=== PATIENT | female | born 1985 | race Caucasian/White ===

== ENCOUNTER 2016-04-29 17:00 | Inpatient (IN) | payer OTHER ==
[~2016-04-29] VITALS: Ht 154.9 cm; Wt 115.2 kg
[2016-04-29] MEDS ORDERED: OXYTOCIN 20 UNITS/LR PREMIX 1,000 ML IV SCH (17:48)
[2016-04-29] MEDS ORDERED: METHYLERGONOVINE 0.2 MG/ML AMP IM SCH (17:50)
[2016-04-29] MEDS ORDERED: CARBOPROST 250 MCG/ML AMP IM PRN (17:50)
[2016-04-29] MEDS ORDERED: NALBUPHINE 10 MG/ML AMP IVP PRN (17:50)
[2016-04-29] MEDS ORDERED: IBUPROFEN 800 MG TAB PO PRN (17:50)
[2016-04-29] MEDS ORDERED: PROMETHAZINE 25 MG/ML VIAL IVP PRN (17:50)
[2016-04-29] MEDS: LACTATED RINGERS 1,000 ML IV SCH (19:19)
[2016-04-29] MEDS ORDERED: NATURAL IRON65 MG PO (19:46)
[2016-04-29] MEDS ORDERED: PRENATAL LOW IR1 TA1 PO (19:46)
[2016-04-29] MEDS ORDERED: NOVOLIN R 100 UNIT IM (19:46)
[2016-04-29] MEDS ORDERED: NOVOLIN N100 UNITS/ SUBQ (19:46)
[2016-04-29 19:50] VITALS: BP 120/75
[2016-04-29] MEDS ORDERED: OXYTOCIN 10 UNITS/ML VIAL IM ONE (20:00)
[2016-04-29] MEDS ORDERED: INFLUENZA VIRUS VACCINE QUAD 0.5 ML SYR IMVAC SCH (20:05)
[2016-04-29] MEDS ORDERED: MISOPROSTOL 25 MCG TAB ONE (22:42)
[2016-04-29] MEDS: MISOPROSTOL 25 MCG TAB VG PRN (22:57)
[2016-04-30] MEDS: LACTATED RINGERS 1,000 ML IV SCH ×4 (01:31→21:31)
[2016-04-30] MEDS ORDERED: ROPIVACAINE 0.2%/NS PREMIX 250 ML EPI ONE (01:45)
[2016-04-30] MEDS ORDERED: MISOPROSTOL 25 MCG TAB ONE (02:55)
[2016-04-30] MEDS: MISOPROSTOL 25 MCG TAB VG PRN (02:59)
[2016-04-30] MEDS ORDERED: OXYTOCIN 20 UNITS/LR PREMIX 1,000 ML IV ONE ×3 (07:08→22:42)
--- NOTE | 2016-04-30 08:32 | NUR ---
PATIENT HAS BEEN SCREENED AND CATEGORIZED MODERATE NUTRITION RISK. PATIENT WILL BE SEEN WITHIN 3-5 DAYS OF ADMISSION. 05/02/16-05/04/[address]
[2016-04-30] MEDS ORDERED: CITRIC ACID/SODIUM CITRATE 30 ML UDC PO SCH (20:00)
[2016-04-30] MEDS ORDERED: ceFAZolin 1,000 MG VIAL ONE (20:12)
[2016-04-30] MEDS ORDERED: ONDANSETRON 4 MG/2 ML VIAL IVP ONE (20:30)
[2016-04-30] MEDS ORDERED: ePHEDrine 50 MG/ML VIAL IV ONE (20:30)
[2016-04-30] MEDS ORDERED: fentaNYL 0.05 MG/ML VIAL ONE (20:44)
[2016-04-30] MEDS ORDERED: KETAMINE 500 MG/5 ML VIAL ONE (20:44)
[2016-04-30] MEDS ORDERED: MORPHINE PRES FREE 10 MG/10 ML AMP IV ONE (20:46)
[2016-04-30] MEDS ORDERED: MIDAZOLAM 2 MG/2 ML VIAL ONE (20:46)
[2016-04-30] MEDS ORDERED: METHYLERGONOVINE 0.2 MG/ML AMP ONE (20:49)
[2016-04-30] MEDS ORDERED: OXYTOCIN 10 UNITS/ML VIAL ONE (20:49)
[2016-04-30] MEDS ORDERED: SODIUM BICARBONATE 8.4% PFS 50 MEQ/50 ML SYR IVP ONE (20:54)
[2016-04-30] MEDS ORDERED: LIDOCAINE/EPI MPF 2%1:200000 10 ML VIAL INJ ONE (20:54)
[2016-04-30] MEDS ORDERED: CITRIC ACID/SODIUM CITRATE 30 ML UDC ONE (20:56)
[2016-04-30] MEDS ORDERED: METHYLERGONOVINE 0.2 MG/ML AMP IM PRN (21:10)
[2016-04-30] MEDS ORDERED: IBUPROFEN 800 MG TAB PO PRN (21:10)
[2016-04-30] MEDS ORDERED: oxyCODONE/APAP 5/325 MG 1 TAB TAB PO PRN (21:10)
[2016-04-30] MEDS ORDERED: MEASLES, MUMPS, AND RUBELLA 1 VIAL SQVAC PRN (21:10)
[2016-04-30] MEDS ORDERED: SIMETHICONE 80 MG TAB.CHEW PO PRN (21:10)
[2016-04-30] MEDS ORDERED: TEMAZEPAM 15 MG CAP PO PRN (21:10)
[2016-04-30] MEDS ORDERED: TRIMETHOBENZAMIDE 200 MG/2 ML SYR IM PRN (21:10)
[2016-04-30] MEDS ORDERED: ONDANSETRON 4 MG/2 ML VIAL IVP PRN (21:40)
[2016-04-30] MEDS ORDERED: diphenhydrAMINE 50 MG/ML VIAL IVP PRN (21:40)
[2016-04-30] MEDS ORDERED: METOCLOPRAMIDE 10 MG/2 ML INJ VIAL ONE (22:11)
[2016-04-30] MEDS ORDERED: diphenhydrAMINE 50 MG/ML VIAL ONE (22:12)
[2016-05-01] MEDS: OXYTOCIN 20 UNITS/LR PREMIX 1,000 ML IV SCH ×3 (04:29→13:08)
[2016-05-01] MEDS: KETOROLAC 30 MG/ML VIAL IVP PRN ×2 (05:53→17:44)
[2016-05-01] MEDS: HYDROcodone/APAP 5/325 MG 1 TAB TAB PO PRN (20:33)
[2016-05-01] MEDS: DOCUSATE SOD/SENNA 50/8.6 MG 1 TAB PO SCH (20:33)
[2016-05-01] MEDS: IBUPROFEN 800 MG TAB PO PRN (22:22)
[2016-05-02] MEDS: HYDROcodone/APAP 5/325 MG 1 TAB TAB PO PRN ×2 (02:08→13:25)
[2016-05-02] MEDS: IBUPROFEN 800 MG TAB PO PRN ×3 (07:09→23:14)
[2016-05-02] MEDS: DOCUSATE SOD/SENNA 50/8.6 MG 1 TAB PO SCH (21:03)
[2016-05-03] MEDS: IBUPROFEN 800 MG TAB PO PRN (06:12)
== END 2016-05-03 11:00 | disposition home or self-care (01) | DRG 540 ==
LOC: MLD 17:00 → MFCC 04-30 22:46
PROVIDERS: ADMIT Obstetrics & Gynecology; ATTEND Obstetrics & Gynecology
PROC: 3E033VJ Introduction of Other Hormone into Peripheral Vein, Percutaneous Approach (ICD-10-PCS; 2016-04-30)
PROC: 10D00Z1 Extraction of Products of Conception, Low, Open Approach (ICD-10-PCS; principal; 2016-04-30 21:00)
DX: O76 Abnormality in fetal heart rate and rhythm complicating labor and delivery (principal); Z68.42 Body mass index [BMI] 45.0-49.9, adult; O61.9 Failed induction of labor, unspecified; O99.214 Obesity complicating childbirth; E66.01 Morbid (severe) obesity due to excess calories; O62.2 Other uterine inertia; Z37.0 Single live birth; Z3A.39 39 weeks gestation of pregnancy; Z87.440 Personal history of urinary (tract) infections